=== PATIENT | male | born 1985 | race Caucasian/White ===

== ENCOUNTER 2018-01-15 08:56 | Day surgery (SDC) | payer MEDICAID ==
[~2018-01-15 08:56] MED LIST: CEFAZOLIN 2 GM/50 ML (PMX) 50 ML IVPB; SOD CHLORIDE 0.9% 1,000 ML IV
[2018-01-15 10:10] LABS: ADD MAN DIFF? NO
[2018-01-15 10:14] LABS: WHITE BLOOD COUNT 6.5 10^3/ul (4.8-10.8)
[2018-01-15 10:14] LABS: BASOPHILS % 0.6 % (0.0-2.0); EOSINOPHILS # 0.3 10^3/ul (0.0-0.5); EOSINOPHILS % 3.9 % (0.0-7.0); HEMATOCRIT 46.9 % (42.0-52.0); HEMOGLOBIN 15.8 g/dl (14.0-18.0); LYMPHOCYTES # 2.9 10^3/ul (0.8-2.9); MEAN CORPUSCULAR HEMOGLOBIN 29.8 pg (29.0-33.0); MEAN CORPUSCULAR HGB CONC 33.7 g/dl (32.0-37.0); MEAN CORPUSCULAR VOLUME 88.3 fl (82.0-101.0); MEAN PLATELET VOLUME 9.4 fl (7.4-10.4); MONOCYTE # 0.5 10^3/ul (0.3-0.9); MONOCYTES % 7.4 % (0.0-11.0); NEUTROPHIL # 2.8 10^3/ul (1.6-7.5); NEUTROPHILS % 43.8 % (39.0-77.0); PLATELET COUNT 287 10^3/UL (140-415); RED BLOOD COUNT 5.31 10^6/ul (4.70-6.10); RED CELL DISTRIBUTION WIDTH 12.7 % (11.5-14.5)
[2018-01-15 10:15] LABS: INR 0.93; PROTIME 12.5 Sec (11.9-14.9)
[2018-01-15 10:16] LABS: PARTIAL THROMBOPLASTIN TIME 29.7 Sec (25.0-35.0)
[2018-01-15 10:20] LABS: ALANINE AMINOTRANSFERASE 67 IU/L (13-69); ALBUMIN 4.8 g/dl (3.3-4.9); ALBUMIN/GLOBULIN RATIO 1.23; ALKALINE PHOSPHATASE 84 IU/L (42-121); ANION GAP 19 (8-16); ASPARTATE AMINO TRANSFERASE 37 IU/L (15-46); CARBON DIOXIDE 24 mmol/L (21-31); CHLORIDE 105 mmol/L (97-110); GLUCOSE 103 mg/dl (70-220); TOTAL PROTEIN 8.7 g/dl (6.1-8.1)
[2018-01-15 10:23] LABS: BLOOD UREA NITROGEN 12 mg/dl (7-20); CALCIUM 9.6 mg/dl (8.4-10.2); CREATININE 0.85 mg/dl (0.61-1.24); POTASSIUM 4.2 mmol/L (3.5-5.1); SODIUM 144 mmol/L (135-144)
[2018-01-15] MEDS ORDERED: ROCURONIUM 50 MG INJ (10:41)
[2018-01-15] MEDS ORDERED: PROPOFOL 20 ML (10:41)
[2018-01-15] MEDS ORDERED: MIDAZOLAM 1 MG/ML 2 ML INJ (10:41)
[2018-01-15] MEDS ORDERED: CEFAZOLIN 1 GM INJ (10:41)
[2018-01-15] MEDS ORDERED: FENTAnyl 50 MCG/ML VIAL ×2 (10:41→11:12)
[2018-01-15] MEDS ORDERED: ONDANSETRON 4 MG INJ (11:13)
[2018-01-15] MEDS ORDERED: METOCLOPRAMIDE 10 MG INJ (11:13)
[2018-01-15] MEDS ORDERED: KETOROLAC 30 MG INJ (11:13)
[2018-01-15] MEDS ORDERED: SUGAMMADEX SODIUM 200 MG/2 ML VIAL IV (11:13)
[2018-01-15] MEDS ORDERED: DEXAMETHASONE 4 MG/ML 1 ML INJ (11:13)
[2018-01-15] MEDS: BUPIVACAINE 0.25% (MPF) 30 ML INJ (11:14)
[2018-01-15] MEDS ORDERED: HYDROCODONE/APAP (5/325) TAB PO (11:30)
== END 2018-01-15 13:13 | disposition home or self-care (01) ==
LOC: SDS 08:56
DX: K60.3 Anal fistula (principal)
CPT/HCPCS: 46270; 71045; 80053; 85025; 85610; 85730; 88304; 93005

== ENCOUNTER 2018-02-18 20:18 | Emergency (ER) | payer OTHER, MEDICAID ==
[2018-02-18] MEDS: LIDOCAINE 1% (MDV) 10 ML INJ INFIL (23:31)
[2018-02-18] MEDS: KETOROLAC 30 MG INJ IV (23:31)
[2018-02-19 00:01] LABS: ADD MAN DIFF? NO
[2018-02-19 00:03] LABS: BASOPHIL # 0.1 10^3/ul (0.0-0.1); BASOPHILS % 0.5 % (0.0-2.0); EOSINOPHILS # 0.2 10^3/ul (0.0-0.5); EOSINOPHILS % 1.5 % (0.0-7.0); HEMATOCRIT 42.8 % (42.0-52.0); HEMOGLOBIN 14.1 g/dl (14.0-18.0); LYMPHOCYTES # 4.1 10^3/ul (0.8-2.9); LYMPHOCYTES % 37.4 % (15.0-51.0); MEAN CORPUSCULAR HEMOGLOBIN 29.7 pg (29.0-33.0); MEAN CORPUSCULAR HGB CONC 32.9 g/dl (32.0-37.0); MEAN CORPUSCULAR VOLUME 90.3 fl (82.0-101.0); MEAN PLATELET VOLUME 9.6 fl (7.4-10.4); MONOCYTE # 0.8 10^3/ul (0.3-0.9); MONOCYTES % 7.2 % (0.0-11.0); NEUTROPHIL # 5.7 10^3/ul (1.6-7.5); NEUTROPHILS % 52.8 % (39.0-77.0); PLATELET COUNT 308 10^3/UL (140-415); RED BLOOD COUNT 4.74 10^6/ul (4.70-6.10); RED CELL DISTRIBUTION WIDTH 12.8 % (11.5-14.5)
[2018-02-19 00:03] LABS: WHITE BLOOD COUNT 10.8 10^3/ul (4.8-10.8)
[2018-02-19] MEDS: AMPICILLIN/SULB 3 GM/NS (PMX) 100 ML IVPB (00:10)
[2018-02-19 00:38] LABS: ALANINE AMINOTRANSFERASE 51 IU/L (13-69); ALBUMIN 4.3 g/dl (3.3-4.9); ALBUMIN/GLOBULIN RATIO 1.16; ALKALINE PHOSPHATASE 105 IU/L (42-121); ANION GAP 13 (8-16); ASPARTATE AMINO TRANSFERASE 29 IU/L (15-46); BILIRUBIN,INDIRECT 0.4 mg/dl (0-1.1); BILIRUBIN,TOTAL 0.4 mg/dl (0.2-1.3); BLOOD UREA NITROGEN 12 mg/dl (7-20); CALCIUM 9.5 mg/dl (8.4-10.2); CARBON DIOXIDE 29 mmol/L (21-31); CHLORIDE 104 mmol/L (97-110); CREATININE 1.04 mg/dl (0.61-1.24); GLUCOSE 115 mg/dl (70-220); POTASSIUM 3.9 mmol/L (3.5-5.1); SODIUM 142 mmol/L (135-144)
== END 2018-02-19 01:37 | disposition home or self-care (01) ==
LOC: FTE 02-19 01:37
DX: L02.31 Cutaneous abscess of buttock (principal); K60.3 Anal fistula
CPT/HCPCS: 10061; 36415; 80053; 85025; 87070; 96374; 96375; 99284-25